=== PATIENT | female | born 1985 | race Two or more races ===

== ENCOUNTER → 2016-08-14 | Outpatient (CLI) | payer OTHER ==
[~2016-08-14] MED LIST: NAPROSYN500 MG PO
--- NOTE | ~2016-08-14 | CR282 ---
[facility]. [facility] A Service of [facility] & [facility] / [facility] RADIOLOGY TEXT RESULTS PATIENT: UYEN MARY LOCATION: [facility] : [birth year] UNIT #: [id number] AGE: [address]: Evette Rangel MD SEX: F ORDER DR: [id number] [place] [id number] O MR#: [id number] Acc #: [id number] NAME: UYEN MARY : 1985 SEX: F STUDY DATE/TIME: 08/14/2016 14:59 UNIT: [facility] ROOM: STUDY DESCRIPTION: CR Wrist Min 3 View Rt Attending Physician: Evette Rangel M.D. Referring Physician: Evette Rangel M.D. Ordering Physician: Kathy Ortega Aprn Primary Care Physician: Kathy Ortega Aprn MEDICAL IMAGING REPORT This report is preliminary unless electronic signature is present. EXAM Right wrist, 3 views, 08/14/2016 HISTORY Right wrist pain for 1 week with swelling, numbness and tingling. No known injury. FINDINGS Wrist evaluation in multiple projections shows normal mineralization of the bony structures about the wrist and satisfactory articular relationship of the radius and ulna to the proximal carpal row and of the distal carpal segments to the metacarpal bases. There is no indication of fracture or dislocation, and no soft tissue radiopaque foreign body is present. No congenital defects are apparent. IMPRESSION Normal wrist. Dictated by... Mauri Benz M.D. THIS IS AN ELECTRONICALLY VERIFIED REPORT Mauri Benz M.D. at 08/15/2016 9:02 AM MARLA/juancarlos TD: 08/14/2016 20:57 JOB #: [id number] MEDICAL IMAGING REPORT Page 1 of 1
== END | disposition home or self-care (01) ==
LOC: SRAD 14:52
DX: M25.531 Pain in right wrist (principal); M79.89 Other specified soft tissue disorders
CPT/HCPCS: 73110